=== PATIENT | female | born 1950 | race Caucasian/White ===

== ENCOUNTER → 2016-10-17 | Day surgery (SDC) | payer OTHER ==
[~2016-10-17] MED LIST: BUPIVACAINE/EPINEPHRINE 0.25% 50 ML VIAL ONE; ISOSULFAN BLUE 50 MG/5 ML VIAL SQ ONE; LACTATED RINGER'S 1000 ML INJ 1,000 ML ONE; MIDAZOLAM HCL 2 MG/2 ML VIAL ONE; ONDANSETRON HCL 4 MG/2 ML VIAL IV PUSH ONE; PROPOFOL 500 MG/50 ML BTL IV ONE; ceFAZolin 2 GM PREMIX 50 ML ONE
--- NOTE | 2016-10-17 14:13 | TN ---
cc: WILY SANDOVAL M.D. DATE OF SURGERY: 10/17/2016 PREOPERATIVE DIAGNOSIS 1. DCIS right breast. 2. History of left breast DCIS. POSTOPERATIVE DIAGNOSIS 1. DCIS right breast. 2. History of left breast DCIS. PROCEDURE PERFORMED Right needle-localized breast lumpectomy. SURGEON Wily Sandoval POLICY ADVISOR Juanita Monzon ANESTHESIA TIVA with local. COMPLICATIONS None. INDICATION FOR PROCEDURE Ms. Eubanks is a pleasant 66-year-old female who was noted to have some microcalcifications in her right breast. She underwent percutaneous biopsy and this was found to be DCIS. Her history is significant for having left breast DCIS for which she had a lumpectomy and postoperative radiation. The patient was sent for an MRI which showed fairly extensive enhancement in the upper central and outer quadrant of the right breast. She was advised that she could consider lumpectomy primarily, however, there was a good chance she was going to have positive margins. The patient wished to proceed with lumpectomy first with the understanding that she may require mastectomy. Risks and benefits of the procedure was discussed with her and she was agreeable. DETAILS OF PROCEDURE The patient was identified, brought to the operating room and placed supine on the operating table. After adequate IV sedation was achieved the right breast was prepped and draped in a standard surgical fashion. 0.25% Marcaine was injected in the skin and subcutaneous tissue in the upper central and outer right breast. A semilunar incision was made in the outer quadrant of the right breast. Subcutaneous skin flaps were then raised in all directions with generous margins away from the wire. The wire was then transected at the skin and brought into the operative site. Again using generous margins in all directions, the breast tissue was dissected with electrocautery Bovie down to the deep tissue just before the pectoral fascia. Specimen was then removed. A short stitch was placed superior and a long stitch placed lateral. By direct palpation the wire was well-centered with generous margins in all directions. The specimen was sent to radiology where Dr. Kaur called back stating that the mass and clip were within the specimen. Next, I elected to go ahead and take additional margins due to the fact the patient was found to have fairly extensive disease on the MRI just in case there were any close margins. A superior medial margin was taken first using electrocautery Bovie. An inferior medial margin was then taken second. After we did this I could also palpate some firm tissue in the lower central portion of the incision just in the infra-areolar position. This was excised and labeled palpable right breast tissue. After we did this the remainder of the breast was unremarkable. By direct palpation there were no other palpable abnormalities. This was a generous lumpectomy of the upper and outer right breast. The wound was copiously irrigated with normal saline solution. The lumpectomy cavity was then filled with 20 cc of 0.25% Marcaine. The wound was then closed in two layers using 3-0 and 4-0 Vicryl. Sterile dressings were applied. The patient was awakened and brought to Recovery in stable condition. MD FABBY Wilder/BJ /1:52 PM /2:04 PM
== END | disposition home or self-care (01) ==
LOC: ESDC 09:46
PROVIDERS: ATTEND Surgery Trauma Surgery
DX: D05.11 Intraductal carcinoma in situ of right breast (principal); Z85.3 Personal history of malignant neoplasm of breast
CPT/HCPCS: 00400; 19125; 88307; 88341; 88342; J0690; J2250; J2405; J3010; J7120; Q9968

== ENCOUNTER 2017-05-03 09:31 | Inpatient (IN) | payer OTHER, MEDICARE ==
[~2017-05-03] VITALS: Ht 157.5 cm; Wt 77.9 kg
[2017-05-03] MEDS ORDERED: IOHEXOL 350 MG/ML 10 ML VIAL (for RAD DIAG) IVCONTRAST ONE (09:32)
[2017-05-03 09:37] VITALS: BP 110/65; PULSE 84; RESP 24; TEMP 98.1; O2SAT 92
[2017-05-03] MEDS ORDERED: RAMI2.5C PO (09:47)
[2017-05-03] MEDS ORDERED: CLOP75TA PO (09:47)
[2017-05-03] MEDS ORDERED: SIMV40TA PO (09:47)
[2017-05-03] MEDS ORDERED: TAMO20TA6 PO (09:47)
[2017-05-03] MEDS ORDERED: DILT0.05 PO (09:47)
[2017-05-03] MEDS ORDERED: ALEN5TAB PO (09:47)
[2017-05-03] MEDS ORDERED: ASPI325T PO (09:47)
[2017-05-03] MEDS ORDERED: KETOROLAC TROMETHAMINE 60 MG/2 ML (IM) VIAL IM ONE (10:00)
[2017-05-03] MEDS ORDERED: HYDROmorphone HCL PF 1 MG/ML VIAL IV PUSH ONE (10:00)
[2017-05-03 10:05] VITALS: BP_SYST 102; BP_SYST 97; BP_DIAS 53; BP_DIAS 70; PULSE 88
--- NOTE | 2017-05-03 10:07 | RADRPT ---
EXAM DATE/TIME: 05/03/2017 09:54 [facility] COMPARISON: No previous studies available for comparison. INDICATIONS : left flank pain. MEDICAL HISTORY : Myocardial infarction. SURGICAL HISTORY : heart catherization ENCOUNTER: Initial ACUITY: 1 day PAIN SCORE: 6/10 LOCATION: Bilateral chest FINDINGS: PA and lateral views of the chest demonstrate bibasilar linear atelectasis/scarring, left worse than right. Blunting of the left costophrenic angle may represent some additional pleural-parenchymal scar ring although an associated small effusion cannot be excluded. Heart size is normal. Degenerative spu rring of the dorsal spine. Surgical clips in the right upper abdominal quadrant are characteristic of prior cholecystectomy CONCLUSION: 1. Bibasilar linear atelectasis/scarring, left worse in right. 2. Small effusion versus lateral pleural-parenchymal scarring in the left base.. Osbaldo Bell MD on May 03, 2017 at 10:02 Board Certified Radiologist. This report was verified electronically.
[2017-05-03 10:22] LABS: AUTOMATED NEUTROPHIL # 14.4 TH/MM3 (1.8-7.7); BASOPHIL # 0.1 TH/MM3 (0-0.2); BASOPHIL % 0.3 % (0.0-2.0); EOSINOPHIL % 0.1 % (0.0-4.0); HEMATOCRIT 38.5 % (35.0-46.0); HEMO FLAGS DIFF FINAL; LYMPH % 3.5 % (9.0-44.0); LYMPHOCYTE # 0.6 TH/MM3 (1.0-4.8); MEAN CORPUSCULAR HEMOGLOBIN 28.1 PG (27.0-34.0); MEAN CORPUSCULAR HGB CONC 33.4 % (32.0-36.0); MONO % 10.3 % (0.0-8.0); NEUT % 85.8 % (16.0-70.0); PLATELET COUNT 287 TH/MM3 (150-450); RED BLOOD COUNT 4.58 MIL/MM3 (4.00-5.30); WHITE BLOOD COUNT 16.7 TH/MM3 (4.0-11.0)
--- NOTE | 2017-05-03 10:25 | PD ---
HPI Chief Complaint: Respiratory Symptoms Time Seen by Provider: 09:36 Travel History International Travel<30 days: No Contact w/Intl Traveler<30days: No Traveled to known affect area: No History of Present Illness HPI This is a 58-year-old female with a history of breast cancer, tobaccoism, presents today with complaints of pleuritic left sided chest pain. Patient states it started last night. She reports it as severe and sharp. She reports that as an 8 out of 10 on the pain scale. There is radiation to her left upper shoulder. She also reports cough with no productive phlegm. She states the cough makes the pain worse. The patient does give history that she's recently returned from a long trip where she had multiple long car rides. She states that she had swelling in her right lower extremity earlier. She reports no sloughing today. There is no reported fevers, chills. PFSH Past Medical History Arthritis: Yes (osteoporosis) Anxiety: Yes Cancer: Yes (breast cancer) High Cholesterol: Yes COPD: Yes Gout: Yes Hypertension: Yes Pancreatitis: Yes Influenza Vaccination: Yes Past Surgical History Cholecystectomy: Yes Other Surgery: Yes (lumpectomy) Social History Alcohol Use: No Tobacco Use: Yes Substance Use: No Allergies-Medications (Allergen,Severity, Reaction): Coded Allergies: No Known Allergies (Unverified , 05/03/17) Reported Meds & Prescriptions Reported Meds & Active Scripts Active Reported Tamoxifen (Tamoxifen Citrate) 20 Mg Tab 20 Mg PO DAILY Aspirin 325 Mg Tab 325 Mg PO HS Alendronate (Alendronate Sodium) 5 Mg Tab 5 Mg PO DAILY Simvastatin 40 Mg Tab 40 Mg PO DAILY Ramipril 2.5 Mg Cap 2.5 Mg PO DAILY Clopidogrel (Clopidogrel Bisulfate) 75 Mg Tab 75 Mg PO DAILY Diltiazem ER 24 HR 180 Mg Livia 180 Mg PO DAILY Review of Systems Except as stated in HPI: all other systems reviewed are Neg General / Constitutional: No: Fever, Chills HENT: No: Headaches, Neck Pain Cardiovascular: Positive: Chest Pain or Discomfort, No: Palpitations, Irregular Rhythm Respiratory: Positive: Cough, Shortness of Breath, Orthopnea, Pleuritic Pain, No: Hemoptysis (left sided) Gastrointestinal: No: Nausea, Vomiting, Abdominal Pain Genitourinary: No: Frequency, Dysuria, Flank Pain (pain is in her left upper lateral chest) Musculoskeletal: Positive: Pain (left sided pleuritic chest pain with radiation to her left shoulder.), No: Weakness Neurologic: No: Weakness, Dizziness, Headache Physical Exam Narrative GENERAL: Well-developed, well-nourished female in no acute distress. SKIN: Focused skin assessment warm/dry. HEAD: Atraumatic. Normocephalic. EYES: No scleral icterus. No injection or drainage. ENT: No nasal bleeding or discharge. Mucous membranes pink and moist. NECK: Trachea midline. No JVD. Supple. CARDIOVASCULAR: Regular rate and rhythm. No murmur appreciated. RESPIRATORY: No accessory muscle use. Questionable slight decreased breath sounds at the left base. No Rales or wheezing appreciated. GASTROINTESTINAL: Abdomen soft, non-tender, nondistended. Hepatic and splenic margins not palpable. MUSCULOSKELETAL: No obvious deformities. No clubbing. No cyanosis. No edema. No Homans sign. NEUROLOGICAL: Awake and alert. No obvious cranial nerve deficits. Motor grossly within normal limits. Normal speech. PSYCHIATRIC: Appropriate mood and affect; insight and judgment normal. Data Data Last Documented VS Vital Signs Date Time Temp Pulse Resp B/P (MAP) Pulse Ox O2 Delivery O2 Flow Rate FiO2 05/03/17 16:09 91 17 101/55 (70) 96 Nasal Cannula 3.00 05/03/17 09:37 98.1 Orders Orders Electrocardiogram (05/03/17 09:36) Basic Metabolic Panel (Bmp) (05/03/17 09:36) Ckmb (Isoenzyme) Profile (05/03/17 09:36) Complete Blood Count With Diff (05/03/17 09:36) D-Dimer (05/03/17 09:36) Magnesium (Mg) (05/03/17 09:36) Prothrombin Time / Inr (Pt) (05/03/17 09:36) Act Partial Throm Time (Ptt) (05/03/17 09:36) Troponin I (05/03/17 09:36) Ecg Monitoring (05/03/17 09:36) Bilateral Bp Monitoring (05/03/17 09:36) Iv Access Insert/Monitor (05/03/17 09:36) Oximetry (05/03/17 09:36) Oxygen Administration (05/03/17 09:36) Chest, Pa & Lat (05/03/17 09:36) Hydromorphone Pf Inj (Dilaudid Pf Inj) (05/03/17 10:00) Ketorolac Inj (Toradol Inj) (05/03/17 10:30) Ct Pulmonary Angiogram (05/03/17 13:21) Blood Culture (05/03/17 13:22) Ceftriaxone Inj (Rocephin Inj) (05/03/17 13:30) Azithromycin Inj (Zithromax Inj) (05/03/17 13:30) Iohexol 350 Inj (Omnipaque 350 Inj) (05/03/17 09:32) Heparin Infusion HUNTER.Q1H (05/03/17 15:45) Heparin Infusion HUNTER.Q1H (05/03/17 15:45) Heparin Inj (Heparin Inj) (05/03/17 15:45) Heparin-D5w 25,000 U/250 Ml (Heparin-D5w (05/03/17 15:45) Act Partial Throm Time (Ptt) (05/03/17 15:45) Prothrombin Time / Inr (Pt) (05/03/17 15:45) Cbc No Diff, Includes Plts (05/03/17 15:45) Cbc No Diff, Includes Plts (05/06/17 06:00) Act Partial Throm Time (Ptt) (05/03/17 22:45) Occult Blood (Hemoccult) Stool (05/03/17 15:45) Aspirin (Aspirin) (05/03/17 21:00) Clopidogrel (Plavix) (05/04/17 09:00) Diltiazem Cd (Cardizem Cd) (05/04/17 09:00) Ramipril (Altace) (05/04/17 09:00) Pravastatin (Pravachol) (05/04/17 09:00) Consult Hematology (05/03/17 ) Admit To Inpatient (05/03/17 ) Code Status (05/03/17 16:03) Vital Signs (Adult) Q4H (05/03/17 16:03) Activity Oob Ad Kait (05/03/17 16:03) Carpet Inspector Finished / Telemetry .CONTINUOUS (05/03/17 16:03) Intake + Output HUNTER.QSHIFT (05/03/17 16:03) Notify Dr: Other (05/03/17 16:03) Diet Heart Healthy (05/03/17 Dinner) Sodium Chlor 0.9% 1000 Ml Inj (Ns 1000 M (05/03/17 16:30) Sodium Chloride 0.9% Flush (Ns Flush) (05/03/17 16:15) Sodium Chloride 0.9% Flush (Ns Flush) (05/03/17 21:00) Acetaminophen (Tylenol) (05/03/17 16:15) Ondansetron Inj (Zofran Inj) (05/03/17 16:15) Comprehensive Metabolic Panel (05/04/17 06:00) Complete Blood Count With Diff (05/04/17 06:00) Creatine Kinase (Cpk) (05/03/17 16:03) Creatine Kinase (Cpk) (05/03/17 22:03) Troponin I (05/03/17 16:03) Troponin I (05/03/17 22:03) Case Management Consult (05/03/17 16:03) Naloxone Inj (Narcan Inj) (05/03/17 16:15) Docusate Sodium-Senna (Denia-Colace) (05/03/17 21:00) Magnesium Hydroxide Liq (Milk Of Magnesi (05/03/17 16:15) Sennosides (Senokot) (05/03/17 16:15) Bisacodyl Supp (Dulcolax Supp) (05/03/17 16:15) Lactulose Liq (Lactulose Liq) (05/03/17 16:15) Inpatient Certification (05/03/17 ) Albuterol-Ipratropium Neb (Duoneb Neb) (05/03/17 20:00) Guaifenesin Er (Mucinex Er) (05/03/17 21:00) Resp Incentive Spirometry (05/03/17 ) (Hub Use Only)Inp Phy Cons/Ref (05/03/17 ) Admit Order (Ed Use Only) (05/03/17 18:01) Labs Laboratory Tests Test 05/03/17 09:45 05/03/17 15:50 05/03/17 16:00 White Blood Count 16.7 TH/MM3 12.0 TH/MM3 Red Blood Count 4.58 MIL/MM3 4.02 MIL/MM3 Hemoglobin 12.9 GM/DL 11.0 GM/DL Hematocrit 38.5 % 34.2 % Mean Corpuscular Volume 84.0 FL 85.0 FL Mean Corpuscular Hemoglobin 28.1 PG 27.4 PG Mean Corpuscular Hemoglobin Concent 33.4 % 32.2 % Red Cell Distribution Width 17.0 % 16.6 % Platelet Count 287 TH/MM3 263 TH/MM3 Mean Platelet Volume 10.0 FL 9.4 FL Neutrophils (%) (Auto) 85.8 % Lymphocytes (%) (Auto) 3.5 % Monocytes (%) (Auto) 10.3 % Eosinophils (%) (Auto) 0.1 % Basophils (%) (Auto) 0.3 % Neutrophils # (Auto) 14.4 TH/MM3 Lymphocytes # (Auto) 0.6 TH/MM3 Monocytes # (Auto) 1.7 TH/MM3 Eosinophils # (Auto) 0.0 TH/MM3 Basophils # (Auto) 0.1 TH/MM3 CBC Comment DIFF FINAL Differential Comment Prothrombin Time 10.6 SEC 10.9 SEC Prothromb Time International Ratio 1.0 RATIO 1.0 RATIO Activated Partial Thromboplast Time 24.6 SEC 24.7 SEC D-Dimer Quantitative (PE/DVT) 0.70 MG/L FEU Blood Urea Nitrogen 14 MG/DL Creatinine 0.92 MG/DL Random Glucose 117 MG/DL Calcium Level 8.4 MG/DL Magnesium Level 2.1 MG/DL Sodium Level 134 MEQ/L Potassium Level 3.9 MEQ/L Chloride Level 100 MEQ/L Carbon Dioxide Level 27.2 MEQ/L Anion Gap 7 MEQ/L Estimat Glomerular Filtration Rate 61 ML/MIN Total Creatine Kinase 34 U/L 38 U/L Troponin I LESS THAN 0.02 NG/ML LESS THAN 0.02 NG/ML MDM Medical Decision Making Medical Screen Exam Complete: Yes Emergency Medical Condition: Yes Differential Diagnosis Pulmonary embolus versus pneumonia versus pleurisy versus bronchitis versus COPD Narrative Course 66-year-old female with a history of bilateral breast cancer, tobaccoism, recent long car rides,, presents here with pleuritic left sided chest pain. The patient has a history of chronic bronchitis. She denies any fevers, chills. She does state that she has a cough as well. The patient was seen her primary care doctor and sent here after given 2 aspirin to rule out cardiac disease. There was a high suspicion for pulmonary emboli as she had had a long car rides and had had swelling of her right lower extremity previously. CT scan shows bilateral pulmonary emboli. The patient currently takes Plavix. He is a call out to the [facility] for admission. Room air O2 sat was 92% on room air here in the department. Diagnosis Primary Impression: Bilateral pulmonary embolism Additional Impressions: Hypoxemia History of bilateral breast cancer History of tobacco use Admitting Information Admitting Physician Requests: Admit Jacobo Welch MD May 03, 2017 10:25
[2017-05-03] MEDS ORDERED: KETOROLAC TROMETHAMINE 30 MG/ML (IVP) VIAL IV PUSH ONE (10:30)
[2017-05-03 10:41] LABS: ANION GAP 7 MEQ/L (5-15); BICARBONATE 27.2 MEQ/L (21.0-32.0); BLOOD UREA NITROGEN 14 MG/DL (7-18); CHLORIDE 100 MEQ/L (98-107); GLOMERULAR FILTRATION RATE 61 ML/MIN (>89); MAGNESIUM 2.1 MG/DL (1.5-2.5); POTASSIUM 3.9 MEQ/L (3.5-5.1); SODIUM (NA) 134 MEQ/L (136-145)
[2017-05-03 10:46] LABS: CREATINE KINASE 34 U/L (26-192)
[2017-05-03 10:53] LABS: APTT (PATIENT) 24.6 SEC (24.3-30.1); PROTHROMBIN TIME - PATIENT 10.6 SEC (9.8-11.6)
[2017-05-03 12:22] VITALS: BP 93/64; PULSE 77; RESP 18; O2SAT 95
[2017-05-03] MEDS ORDERED: cefTRIAXone INJ 1,000 MG in SODIUM CHLORIDE 0.9% INJ 100 ML IV ONE (13:30)
[2017-05-03] MEDS ORDERED: AZITHROMYCIN INJ 500 MG in SODIUM CHLOR 0.9% 250 ML INJ 250 ML IV ONE (13:30)
--- NOTE | 2017-05-03 14:12 | EKG ---
Date Performed: 05/03/2017 Time Performed: 09:39:53 PTAGE: 66 years EKG: Sinus rhythm MODERATE T-WAVE ABNORMALITY, CONSIDER ANTERIOR ISCHEMIA ABNORMAL ECG NO PREVIOUS TRACING DOCTOR: Gabriel Tellez Interpretating Date/Time 05/03/2017 14:09:54
--- NOTE | 2017-05-03 14:18 | RADRPT ---
EXAM DATE/TIME: 05/03/2017 13:52 [facility] COMPARISON: No previous studies available for comparison. INDICATIONS : Chest pain and shortness of breath since this morning. IV CONTRAST: 71 cc Omnipaque 350 (iohexol) IV RADIATION DOSE: 10.68 CTDIvol (mGy) MEDICAL HISTORY : Cardiovascular disease. Hypertension. Carcinoma, breast.DVT, lupus. SURGICAL HISTORY : Tubal ligation. Hysterectomy. ENCOUNTER: Initial ACUITY: 1 day PAIN SCALE: 5/10 LOCATION: Bilateral chest TECHNIQUE: Volumetric scanning of the chest was performed using a pulmonary embolism protocol MIP images were re constructed. Using automated exposure control and adjustment of the mA and/or kV according to patien t size, radiation dose was kept as low as reasonably achievable to obtain optimal diagnostic quality images. DICOM format image data is available electronically for review and comparison. Follow-up recommendations for detected pulmonary nodules are based at a minimum on nodule size and pa tient risk factors according to Fleischner Society Guidelines. FINDINGS: PULMONARY ARTERIES: The study is positive for relatively low volume bilateral pulmonary embolism with small tubular filli ng defect present in right lower lobe segmental and subsegmental pulmonary branch vessels as well as left upper and lower lobe pulmonary branch vessels. No sizable central embolus is present. LUNGS: Consolidative changes in the lung bases bilaterally, mainly right middle lobe and posterior and later al left lung base PLEURAE: Small left effusion. MEDIASTINUM: There is good visualization of the great vessels of the middle mediastinum. No evidence of mediastin al or hilar adenopathy/mass. MUSCULOSKELETAL: Within normal limits for patient age. MISCELLANEOUS: The visualized upper abdominal organs demonstrate no acute abnormality. CONCLUSION: Bilateral pulmonary embolism. Jose Luis Dale MD on May 03, 2017 at 14:10 Board Certified Radiologist. This report was verified electronically.
[2017-05-03] MEDS ORDERED: HEPARIN SODIUM - IV 10,000 UNITS/10 ML VIAL IV PUSH ONE (15:45)
[2017-05-03] MEDS: HEPARIN-D5W 25,000 U/250 ML 250 ML IV PRN (16:02)
--- NOTE | 2017-05-03 16:02 | HHI.HP ---
[facility] Primary [facility] Physician Maximiliano Hall MD Admission Diagnosis Diagnoses: Chief Complaint: pleuritic left sided chest pain. Travel History International Travel<30 Days: No Contact w/Intl Traveler <30 Da: No Traveled to Known Affected Are: No History of Present Illness This is a pleasant 58 y/o Female with Breast Cancer, Tobacco dependence, who came with complaints of pleuritic left sided chest pain. Patient states it started last night. She reports it as severe and sharp. She reports that as an 8 out of 10 on the pain scale. There is radiation to her left upper shoulder. She also reports cough with no productive phlegm. She states the cough makes the pain worse. The patient does give history that she's recently returned from a long trip where she had multiple long car rides. She states that she had swelling in her right lower extremity earlier. She reports no sloughing today. There is no reported fevers, chills. Seen in her bedroom no complaint at this moment, her arrives by her side a the end of my visit. Review of Systems Constitutional: DENIES: Fever, Chills, Change in appetite Endocrine: DENIES: Heat/cold intolerance Eyes: DENIES: Blurred vision, Eye pain Except as stated in HPI: all other systems reviewed are Neg Past Family Social History Past Medical History Osteoporosis Anxiety disorder Breast Cancer Hyperlipidemia COPD gout Hypertension pancreatitis Past Surgical History Cholecystectomy Lumpectomy Reported Medications Reported Meds & Active Scripts Active Reported Tamoxifen (Tamoxifen Citrate) 20 Mg Tab 20 Mg PO DAILY Aspirin 325 Mg Tab 325 Mg PO HS Alendronate (Alendronate Sodium) 5 Mg Tab 5 Mg PO DAILY Simvastatin 40 Mg Tab 40 Mg PO DAILY Ramipril 2.5 Mg Cap 2.5 Mg PO DAILY Clopidogrel (Clopidogrel Bisulfate) 75 Mg Tab 75 Mg PO DAILY Diltiazem ER 24 HR 180 Mg Livia 180 Mg PO DAILY Allergies: Coded Allergies: No Known Allergies (Unverified , 05/03/17) Active Ordered Medications Current Medications Medications (Trade) Dose Ordered Sig/Karine Route Start Time Stop Time Status Last Admin Heparin Sodium/ Dextrose 250 ml @ 14 mls/hr TITRATE PRN IV 05/03/17 15:45 05/03/17 16:02 (Aspirin) 325 mg HS PO 05/03/17 21:00 (Plavix) 75 mg DAILY PO 05/04/17 09:00 (Cardizem Cd) 180 mg DAILY PO 05/04/17 09:00 (Altace) 2.5 mg DAILY PO 05/04/17 09:00 (Pravachol) 80 mg DAILY PO 05/04/17 09:00 Sodium Chloride 1,000 ml @ 83 mls/hr Q12H3M IV 05/03/17 16:30 05/03/17 17:36 (NS Flush) 2 ml UNSCH PRN IV FLUSH 05/03/17 16:15 (NS Flush) 2 ml BID IV FLUSH 05/03/17 21:00 (Tylenol) 650 mg Q4H PRN PO 05/03/17 16:15 (Zofran Inj) 4 mg Q6H PRN IVP 05/03/17 16:15 (Narcan Inj) 0.4 mg UNSCH PRN IV PUSH 05/03/17 16:15 (Denia-Colace) 1 tab BID PO 05/03/17 21:00 (Milk Of Magnesia Liq) 30 ml Q12H PRN PO 05/03/17 16:15 (Senokot) 17.2 mg Q12H PRN PO 05/03/17 16:15 (Dulcolax Supp) 10 mg DAILY PRN RECTAL 05/03/17 16:15 (Lactulose Liq) 30 ml DAILY PRN PO 05/03/17 16:15 (Duoneb Neb) 1 ampule Q4HR NEB NEB 05/03/17 20:00 (Mucinex Er) 600 mg BID PO 05/03/17 21:00 Family History asked and denies. Social History tobacco dependence Physical Exam Vital Signs Vital Signs Date Time Temp Pulse Resp B/P (MAP) Pulse Ox O2 Delivery O2 Flow Rate FiO2 05/03/17 12:22 77 18 93/64 (74) 95 Nasal Cannula 3.00 05/03/17 11:16 20 05/03/17 11:16 20 05/03/17 10:05 88 102/70 (81) 97/53 (68) 05/03/17 09:37 98.1 84 24 110/65 (80 92 Physical Exam GENERAL: Well-developed, well-nourished female in no acute distress. SKIN: Focused skin assessment warm/dry. HEAD: Atraumatic. Normocephalic. EYES: No scleral icterus. No injection or drainage. ENT: No nasal bleeding or discharge. Mucous membranes pink and moist. NECK: Trachea midline. No JVD. Supple. CARDIOVASCULAR: Regular rate and rhythm. No murmur appreciated. RESPIRATORY: No accessory muscle use. Questionable slight decreased breath sounds at the left base. No Rales or wheezing appreciated. GASTROINTESTINAL: Abdomen soft, non-tender, nondistended. Hepatic and splenic margins not palpable. MUSCULOSKELETAL: No obvious deformities. No clubbing. No cyanosis. No edema. No Homans sign. NEUROLOGICAL: Awake and alert. No obvious cranial nerve deficits. Motor grossly within normal limits. Normal speech. PSYCHIATRIC: Appropriate mood and affect; insight and judgment normal. Laboratory Laboratory Tests Test 05/03/17 09:45 White Blood Count 16.7 Red Blood Count 4.58 Hemoglobin 12.9 Hematocrit 38.5 Mean Corpuscular Volume 84.0 Mean Corpuscular Hemoglobin 28.1 Mean Corpuscular Hemoglobin Concent 33.4 Red Cell Distribution Width 17.0 Platelet Count 287 Mean Platelet Volume 10.0 Neutrophils (%) (Auto) 85.8 Lymphocytes (%) (Auto) 3.5 Monocytes (%) (Auto) 10.3 Eosinophils (%) (Auto) 0.1 Basophils (%) (Auto) 0.3 Neutrophils # (Auto) 14.4 Lymphocytes # (Auto) 0.6 Monocytes # (Auto) 1.7 Eosinophils # (Auto) 0.0 Basophils # (Auto) 0.1 CBC Comment DIFF FINAL Differential Comment Prothrombin Time 10.6 Prothromb Time International Ratio 1.0 Activated Partial Thromboplast Time 24.6 D-Dimer Quantitative (PE/DVT) 0.70 Blood Urea Nitrogen 14 Creatinine 0.92 Random Glucose 117 Calcium Level 8.4 Magnesium Level 2.1 Sodium Level 134 Potassium Level 3.9 Chloride Level 100 Carbon Dioxide Level 27.2 Anion Gap 7 Estimat Glomerular Filtration Rate 61 Total Creatine Kinase 34 Troponin I LESS THAN 0.02 Date/Time Source Procedure Growth Status 05/03/17 09:45 Blood Peripheral Aerobic Blood Culture Pending Received 05/03/17 09:45 Blood Peripheral Anaerobic Blood Culture Pending Received Result Diagram: 05/03/1745 05/03/1745 Imaging Last Impressions Chest X-Ray 05/03/17935 Signed Impressions: Service Date/Time: Wednesday, May 03, 2017 09:54 - CONCLUSION: 1. Bibasilar linear atelectasis/scarring, left worse in right. 2. Small effusion versus lateral pleural-parenchymal scarring in the left base.. MD Latosha Dougherty VTE Risk Assessment Caprini VTE Risk Assessment: Mod/High Risk (score >= 2) Caprini Risk Assessment Model Point Value = 1 Point Value = 2 Point Value = 3 Point Value = 5 Age 41-60 Minor surgery BMI > 25 kg/m2 Swollen legs Varicose veins or History of unexplained or recurrent spontaneous Oral contraceptives or hormone replacement Sepsis (< 1 month) Serious lung disease, including pneumonia (< 1 month) Abnormal pulmonary function Acute myocardial infarction Congestive heart failure (< 1 month) History of inflammatory bowel disease Medical patient at bed rest Age 61-74 Arthroscopic surgery Major open surgery (> 45 min) Laparoscopic surgery (> 45 min) Malignancy Confined to bed (> 72 hours) Immobilizing plaster cast Central venous access Age >= 75 History of VTE Family history of VTE Factor V Leiden Prothrombin [id number] Lupus anticoagulant Anticardiolipin antibodies Elevated serum homocysteine Heparin-induced thrombocytopenia Other congenital or acquired thrombophilia Stroke (< 1 month) Elective arthroplasty Hip, pelvis, or leg fracture Acute spinal cord injury (< 1 month) Prophylaxis Regimen Total Risk Factor Score Risk Level Prophylaxis Regimen 0-1 Low Early ambulation 2 Moderate Order ONE of the following: *Sequential Compression Device (SCD) *Heparin 5000 units SQ BID 3-4 Higher Order ONE of the following medications: *Heparin 5000 units SQ TID *Enoxaparin/Lovenox 40 mg SQ daily (WT < 150 kg, CrCl > 30 mL/min) *Enoxaparin/Lovenox 30 mg SQ daily (WT < 150 kg, CrCl > 10-29 mL/min) *Enoxaparin/Lovenox 30 mg SQ BID (WT < 150 kg, CrCl > 30 mL/min) AND/OR *Sequential Compression Device (SCD) 5 or more Highest Order ONE of the following medications: *Heparin 5000 units SQ TID (Preferred with Epidurals) *Enoxaparin/Lovenox 40 mg SQ daily (WT < 150 kg, CrCl > 30 mL/min) *Enoxaparin/Lovenox 30 mg SQ daily (WT < 150 kg, CrCl > 10-29 mL/min) *Enoxaparin/Lovenox 30 mg SQ BID (WT < 150 kg, CrCl > 30 mL/min) AND *Sequential Compression Device (SCD) Assessment and Plan Assessment and Plan 1. Bilateral Pulmonary Emboli, in a patient who has Breast cancer on active management followed by denial resolution specialist she was seen by her PCP and sent her to ER for evaluation after giving her ASA, thinking initially on ACS. CTA scan shows bilateral pulmonary emboli. The patient currently takes Plavix. asked for [place]angel[place] management specialist consult bilateral Leg US and Echocardiogram. 2. Hypoxemia continue oxygen as needed to keep oxygen over 90%, Bronchodilator, Mucolytic and incentive spirometry 3. History of Bilateral Breast Cancer status post Lumpectomy, Radiation therapy and Hormonal therapy 4. Tobacco dependence strongly recommended to stop smoking 5. Osteoporosis by history 6. Anxiety disorder to continue home medicines 7. Hyperlipidemia continue Statins 8. COPD continue Bronchodilator, Mucolytic and incentive spirometry DVT prophylaxis with Heparin. Code Status Full code. Discussed Condition With Jacobo Welch MD Physician Certification 2 Midnight Certification Type: Admission for Inpatient Services Order for Inpatient Services The services are ordered in accordance with Medicare regulations or non- Medicare payer requirements, as applicable. In the case of services not specified as inpatient-only, they are appropriately provided as inpatient services in accordance with the 2-midnight benchmark. Estimated LOS (days): 3 days is the estimated time the patient will need to remain in the hospital, assuming treatment plan goals are met and no additional complications. Post-Hospital Plan: Not yet determined Karan Nobles MD May 03, 2017 16:02
[2017-05-03 16:09] VITALS: BP 101/55; PULSE 91; RESP 17; O2SAT 96
[2017-05-03 16:11] LABS: HEMATOCRIT 34.2 % (35.0-46.0); MEAN CORPUSCULAR HEMOGLOBIN 27.4 PG (27.0-34.0); MEAN CORPUSCULAR HGB CONC 32.2 % (32.0-36.0); PLATELET COUNT 263 TH/MM3 (150-450); RED BLOOD COUNT 4.02 MIL/MM3 (4.00-5.30); RED CELL DISTRIBUTION WIDTH 16.6 % (11.6-17.2); REVIEW FLAG FINAL
[2017-05-03] MEDS ORDERED: LACTULOSE SYRUP 20 GM/30 ML CUP PO PRN (16:15)
[2017-05-03] MEDS ORDERED: SODIUM CHLORIDE 0.9% FLUSH 10 ML FLUSH IV FLUSH PRN (16:15)
[2017-05-03] MEDS ORDERED: BISACODYL 10 MG SUPP RECTAL PRN (16:15)
[2017-05-03] MEDS ORDERED: MAGNESIUM HYDROXIDE SUSP 30 ML CUP PO PRN (16:15)
[2017-05-03] MEDS ORDERED: ONDANSETRON HCL 4 MG/2 ML VIAL IVP PRN (16:15)
[2017-05-03] MEDS ORDERED: ACETAMINOPHEN 325 MG TAB PO PRN (16:15)
[2017-05-03] MEDS ORDERED: SENNOSIDES 8.6 MG TAB PO PRN (16:15)
[2017-05-03] MEDS ORDERED: NALOXONE HCL 0.4 MG/ML AMP IV PUSH PRN (16:15)
[2017-05-03 16:23] LABS: APTT (PATIENT) 24.7 SEC (24.3-30.1); PROTHROMBIN TIME - PATIENT 10.9 SEC (9.8-11.6)
[2017-05-03 17:15] LABS: CREATINE KINASE 38 U/L (26-192)
[2017-05-03] MEDS: SODIUM CHLOR 0.9% 1000 ML INJ 1,000 ML IV SCH (17:36)
--- NOTE | 2017-05-03 19:10 | RADRPT ---
EXAM DATE/TIME: 05/03/2017 18:16 [place] COMPARISON: No previous studies available for comparison. INDICATIONS : Bilateral leg swelling. MEDICAL HISTORY : Hypercholesterolemia. Hypertension. Chronic obstructive pulmonary disease. Pancreatitis. Arthritis. G OUT. Anxiety. Breast cancer. SURGICAL HISTORY : Cholecystectomy. Lumpectomy. ENCOUNTER: Initial ACUITY: 1 day PAIN SCORE: 0/10 LOCATION: Bilateral legs. TECHNIQUE: Venous ultrasound of the left and right leg was performed from the inguinal ligament to the proximal calf. Real-time, color Doppler and spectral tracing, compression and augmentation techniques were us ed. FINDINGS: RIGHT LEG: There is normal compressibility of the deep venous system from the inguinal region to the proximal ca lf. No echogenic clot is seen in the lumen of the common femoral, femoral, popliteal, and posterior tibial veins. There is a normal response of the venous system to proximal and distal augmentation an d respiration. LEFT LEG: There is normal compressibility of the deep venous system from the inguinal region to the proximal ca lf. No echogenic clot is seen in the lumen of the common femoral, femoral, popliteal, and posterior tibial veins. There is a normal response of the venous system to proximal and distal augmentation an d respiration. CONCLUSION: No DVT. Jose Luis Uribe MD on May 03, 2017 at 19:08 Board Certified Radiologist. This report was verified electronically.
[2017-05-03] MEDS ORDERED: SERT-132 PO (19:38)
[2017-05-03] MEDS ORDERED: ARIC23TA PO (19:38)
[2017-05-03] MEDS ORDERED: PRED10 PO (19:38)
[2017-05-03] MEDS ORDERED: RALO1TAB PO (19:38)
[2017-05-03] MEDS ORDERED: TUMS500C CHEW (19:38)
[2017-05-03] MEDS ORDERED: VITA200013 (19:38)
[2017-05-03] MEDS ORDERED: VITA100021 SL (19:38)
[2017-05-03 20:00] VITALS: BP 111/58; PULSE 88; RESP 17; TEMP 97.2; O2SAT 95
[2017-05-03] MEDS: guaiFENesin E.R. 600 MG TAB PO SCH (20:50)
[2017-05-03] MEDS: ASPIRIN 325 MG TAB PO SCH (20:50)
[2017-05-03] MEDS: DOCUSATE SODIUM 50 MG/SENNA 8.6 MG TAB PO SCH (20:50)
[2017-05-03] MEDS: SODIUM CHLORIDE 0.9% FLUSH 10 ML FLUSH IV FLUSH SCH (20:51)
[2017-05-03] MEDS: RESP: ALBUTEROL 2.5 MG/IPRATROPIUM 0.5 MG NEB (SCH) NEB (20:55)
[2017-05-03 21:07] VITALS: PULSE 92
[2017-05-03 23:41] LABS: APTT (PATIENT) 52.5 SEC (24.3-30.1)
[2017-05-04] VITALS (11 sets, daily range): BP systolic 98–118; BP diastolic 49–59; PULSE 79–95; RESP 17–20; TEMP 97.7–99.8; O2SAT 92–98
[2017-05-04 00:12] LABS: CREATINE KINASE 42 U/L (26-192)
[2017-05-04] MEDS: RESP: ALBUTEROL 2.5 MG/IPRATROPIUM 0.5 MG NEB (SCH) NEB ×6 (00:34→20:00)
[2017-05-04] MEDS: SODIUM CHLOR 0.9% 1000 ML INJ 1,000 ML IV SCH ×2 (05:19→18:22)
[2017-05-04] MEDS: SODIUM CHLORIDE 0.9% FLUSH 10 ML FLUSH IV FLUSH SCH ×2 (09:00→21:00)
[2017-05-04] MEDS: PRAVASTATIN SOD 80 MG TAB PO SCH (09:36)
[2017-05-04] MEDS: CLOPIDOGREL 75 MG TAB PO SCH (09:36)
[2017-05-04] MEDS: RAMIPRIL 2.5 MG CAP PO SCH (09:36)
[2017-05-04] MEDS: DILTIAZEM-CD 180 MG CAP ER PO SCH (09:36)
[2017-05-04] MEDS: DOCUSATE SODIUM 50 MG/SENNA 8.6 MG TAB PO SCH ×2 (09:37→21:00)
[2017-05-04] MEDS: guaiFENesin E.R. 600 MG TAB PO SCH ×2 (09:37→21:14)
[2017-05-04] MEDS ORDERED: MORPHINE SULFATE 4 MG/ML INJ IV PUSH ONE (10:15)
[2017-05-04 11:16] LABS: AUTOMATED NEUTROPHIL # 10.8 TH/MM3 (1.8-7.7); BASOPHIL # 0.1 TH/MM3 (0-0.2); BASOPHIL % 0.5 % (0.0-2.0); EOSINOPHIL % 0.3 % (0.0-4.0); HEMATOCRIT 35.4 % (35.0-46.0); HEMO FLAGS DIFF FINAL; LYMPH % 4.7 % (9.0-44.0); LYMPHOCYTE # 0.6 TH/MM3 (1.0-4.8); MEAN CELL VOLUME 85.8 FL (80.0-100.0); MEAN CORPUSCULAR HEMOGLOBIN 27.8 PG (27.0-34.0); MEAN CORPUSCULAR HGB CONC 32.5 % (32.0-36.0); MONO % 8.3 % (0.0-8.0); NEUT % 86.2 % (16.0-70.0); PLATELET COUNT 216 TH/MM3 (150-450); RED BLOOD COUNT 4.12 MIL/MM3 (4.00-5.30); RED CELL DISTRIBUTION WIDTH 17.2 % (11.6-17.2); WHITE BLOOD COUNT 12.5 TH/MM3 (4.0-11.0)
[2017-05-04 11:29] LABS: ANION GAP 10 MEQ/L (5-15); AST (GOT) 27 U/L (15-37); BICARBONATE 22.6 MEQ/L (21.0-32.0); BLOOD UREA NITROGEN 9 MG/DL (7-18); CHLORIDE 105 MEQ/L (98-107); GLOMERULAR FILTRATION RATE 70 ML/MIN (>89); POTASSIUM 3.4 MEQ/L (3.5-5.1); SODIUM (NA) 138 MEQ/L (136-145)
[2017-05-04 11:31] LABS: ALT (GPT) 30 U/L (10-53); APTT (PATIENT) 36.4 SEC (24.3-30.1)
[2017-05-04 11:33] LABS: ALKALINE PHOSPHATASE 108 U/L (45-117); TOTAL BILIRUBIN ADULT 0.5 MG/DL (0.2-1.0)
[2017-05-04] MEDS: HEPARIN-D5W 25,000 U/250 ML 250 ML IV PRN (11:50)
--- NOTE | 2017-05-04 12:20 | ECHRPT ---
Indication: shortness of breath CONCLUSIONS The left ventricular systolic function is normal with an estimated ejection fraction in the range of 60-65%. Normal left ventricular size. Wall thickness is normal. No regional wall motion abnormalities are present. Pulmonary arterial systolic pressure could not be estimated due to an insufficient tricuspid valve regurgitation doppler jet for measurement. Normal left ventricular size. Wall thickness is normal. No regional wall motion abnormalities are present. Pulmonary arterial systolic pressure could not be estimated due to an insufficient tricuspid valve regurgitation doppler jet for measurement. The pulmonary valve is not well visualized. BP: 104 / 59 HR: 81 Rhythm: Sinus MEASUREMENTS (Male / Female) Normal Values Technical Quality:Good 2D ECHO LV Diastolic Diameter PLAX 4.2 cm 4.2 - 5.9 / 3.9 - 5.3 cm LV Systolic Diameter PLAX 2.7 cm IVS Diastolic Thickness 0.9 cm 0.6 - 1.0 / 0.6 - 0.9 cm LVPW Diastolic Thickness 0.9 cm 0.6 - 1.0 / 0.6 - 0.9 cm LV Relative Wall Thickness 0.4 RV Internal Dim ED PLAX 2.8 cm LVOT Diameter 2.0 cm LA Systolic Diameter LX 3.8 cm 3.0 - 4.0 / 2.7 - 3.8 cm LV Ejection Fraction MOD 4C 67.9 % LV Cardiac Index MOD 4C 3202.6 cm/minm LV Ejection Fraction 4C AL 68.6 % LV Cardiac Index 4C AL 3333.2 cm/minm M-MODE Aortic Root Diameter MM 3.2 cm AV Cusp Separation MM 1.8 cm DOPPLER AV Peak Velocity 244.5 cm/s AV Peak Gradient 23.9 mmHg AV Mean Gradient 11.0 mmHg AV Velocity Time Integral 42.2 cm LVOT Peak Velocity 135.0 cm/s LVOT Peak Gradient 7.3 mmHg LVOT Velocity Time Integral 26.6 cm LVOT Cardiac Index 3616.6 cm/minm AV Area Cont Eq vti 2.0 cm AV Area Cont Eq pk 1.7 cm MV Peak Velocity 156.0 cm/s MV Peak Gradient 9.7 mmHg MV Mean Velocity 95.2 cm/s MV Mean Gradient 4.0 mmHg MV Area PHT 4.0 cm Mitral E Point Velocity 109.5 cm/s Mitral A Point Velocity 137.0 cm/s Mitral E to A Ratio 0.8 LV E' Lateral Velocity 7.0 cm/s Mitral E to LV E' Lateral Ratio 15.6 LV E' Septal Velocity 6.8 cm/s Mitral E to LV E' Septal Ratio 16.1 PV Peak Velocity 136.5 cm/s PV Peak Gradient 7.5 mmHg FINDINGS LEFT VENTRICLE The left ventricular systolic function is normal with an estimated ejection fraction in the range of 60-65%. Normal left ventricular size. Wall thickness is normal. No regional wall motion abnormalities are present. RIGHT VENTRICLE Normal right ventricular size and systolic function. LEFT ATRIUM The left atrial size is normal. RIGHT ATRIUM The right atrial size is normal. ATRIAL SEPTUM Normal atrial septal thickness without atrial level shunting by limited color doppler interrogation. AORTA The aortic root and proximal ascending aorta are normal in size on limited imaging. MITRAL VALVE Structurally normal mitral valve. No mitral valve stenosis or regurgitation. TRICUSPID VALVE Pulmonary arterial systolic pressure could not be estimated due to an insufficient tricuspid valve regurgitation doppler jet for measurement. PULMONARY VALVE The pulmonary valve is not well visualized. VESSELS The inferior vena cava is normal in size. PERICARDIUM No pericardial effusion. Gabriel Tellez MD, FACC (Electronically Signed) Final Date:04 May 2017 12:19
--- NOTE | 2017-05-04 12:33 | HHI.PR ---
Subjective Remarks Breathing is better but pleuritic pain persisting. Morphine helps. Objective Vitals Vital Signs Date Time Temp Pulse Resp B/P (MAP) Pulse Ox O2 Delivery O2 Flow Rate FiO2 05/04/17 09:38 94 18 110/58 (75) 05/04/17 08:10 98.1 93 20 118/56 (76) 93 05/04/17 04:00 97.7 81 18 104/59 (74) 94 05/04/17 03:10 16 05/04/17 00:36 98 Nasal Cannula 3.00 05/04/17 00:32 79 05/04/17 00:00 98.4 82 17 105/57 (73) 94 05/03/17 21:07 92 05/03/17 20:58 Nasal Cannula 3.00 98 05/03/17 20:00 97.2 88 17 111/58 (75) 95 05/03/17 19:26 05/03/17 16:09 91 17 101/55 (70) 96 Nasal Cannula 3.00 I/O 05/03/17 05/03/17 05/03/17 05/04/17 05/04/17 05/04/17 07:00 15:00 23:00 07:00 15:00 23:00 Intake Total 100 ml 250 ml 240 ml Balance 100 ml 250 ml 240 ml Intake Oral 240 ml IV Total 100 ml 250 ml # Voids 2 Result Diagram: 05/04/17 0941 05/04/[address] Angiography 05/03/17 1321 Signed Impressions: Service Date/Time: Wednesday, May 03, 2017 13:52 - CONCLUSION: Bilateral pulmonary embolism. Jose Luis Dale MD Chest X-Ray 05/03/17 0936 Signed Impressions: Service Date/Time: Wednesday, May 03, 2017 09:54 - CONCLUSION: 1. Bibasilar linear atelectasis/scarring, left worse in right. 2. Small effusion versus lateral pleural-parenchymal scarring in the left base.. Osbaldo Bell MD Lower Extremity Ultrasound 05/03/17 0000 Signed Impressions: Service Date/Time: Wednesday, May 03, 2017 18:16 - CONCLUSION: No DVT. Jose Luis Uribe MD Objective Remarks GENERAL: In no acute distress. CARDIOVASCULAR: Regular rate and rhythm. RESPIRATORY: No accessory muscle use. Diminished breath sounds at the bases otherwise clear to auscultation. GASTROINTESTINAL: Abdomen soft, non-tender, nondistended. Hepatic and splenic margins not palpable. MUSCULOSKELETAL: Extremities without clubbing, cyanosis, or edema. No obvious deformities. NEUROLOGICAL: Awake and alert. No obvious cranial nerve deficits. Motor grossly within normal limits. Five out of 5 muscle strength in the arms and legs. Normal speech. PSYCHIATRIC: Appropriate mood and affect; insight and judgment normal. A/P Assessment and Plan 66 Y/O female with history of breast cancer admitted with bilateral pulmonary emboli after prolonged travel. Bilateral pulmonary emboli in a patient with history of bilateral breast cancer status post Lumpectomy, Radiation therapy and Hormonal therapy - Continue Heparin drip per protocol. Patient currently take Plavix - Hematology/Oncology consulted for input regarding anticoagulation - LE US unremarkable. 2D echo ordered Hypoxemia: Secondary to above. Improving - oxygen as needed to keep oxygen over 90%, Bronchodilator, and incentive spirometry History of Tobacco dependence -strongly recommended to stop smoking Anxiety disorder: continue home medications Hyperlipidemia continue Statins COPD continue Bronchodilator, Mucolytic and incentive spirometry DVT prophylaxis: On Heparin. Britt Henderson MD May 04, 2017 12:33
[2017-05-04] MEDS ORDERED: MORPHINE SULFATE 2 MG/ML INJ IV PUSH PRN (12:45)
[2017-05-04] MEDS: ACETAMINOPHEN/HYDROcodone 325 MG/5 MG TAB PO PRN (18:21)
[2017-05-04 18:57] LABS: APTT (PATIENT) 35.9 SEC (24.3-30.1)
[2017-05-04] MEDS: ASPIRIN 325 MG TAB PO SCH (21:14)
[2017-05-05] VITALS (9 sets, daily range): BP systolic 100–127; BP diastolic 52–63; PULSE 75–92; RESP 2–20; TEMP 97.4–99.2; O2SAT 92–98
[2017-05-05] MEDS: RESP: ALBUTEROL 2.5 MG/IPRATROPIUM 0.5 MG NEB (SCH) NEB ×3 (00:05→07:46)
[2017-05-05 02:01] LABS: HEMATOCRIT 30.7 % (35.0-46.0); MEAN CELL VOLUME 85.1 FL (80.0-100.0); MEAN CORPUSCULAR HEMOGLOBIN 28.1 PG (27.0-34.0); PLATELET COUNT 225 TH/MM3 (150-450); RED BLOOD COUNT 3.61 MIL/MM3 (4.00-5.30); RED CELL DISTRIBUTION WIDTH 16.7 % (11.6-17.2); REVIEW FLAG FINAL; WHITE BLOOD COUNT 9.7 TH/MM3 (4.0-11.0)
[2017-05-05 02:23] LABS: APTT (PATIENT) 53.4 SEC (24.3-30.1)
[2017-05-05 02:47] LABS: BICARBONATE 26.3 MEQ/L (21.0-32.0); POTASSIUM 3.3 MEQ/L (3.5-5.1)
[2017-05-05] MEDS: ACETAMINOPHEN/HYDROcodone 325 MG/5 MG TAB PO PRN ×2 (03:56→15:12)
--- NOTE | 2017-05-05 05:30 | MB ---
cc: CHELLY FLOOD DATE OF 1950 DATE OF CONSULTATION May 04, 2017 REASON FOR CONSULTATION The patient has a history of ductal carcinoma in situ of the breast who presents to the emergency department with dyspnea and was found to have pulmonary embolism. HISTORY OF PRESENT ILLNESS Ms. Eubanks is a 66-year-old female who has a diagnosis of DCIS of the right breast. She was found to have asymmetry within the right breast in the July of 2016. An ultrasound confirmed an ill-defined area of distortion at the 12 o'clock position. A diagnostic mammogram confirmed BI-RADS Category 4 suspicious abnormality. She underwent ultrasound-guided biopsy which confirmed ductal carcinoma in situ, nuclear grade intermediate with solid and cribriform patterns. This was ER positive 98%, ND positive 4%. She underwent lumpectomy/breast conservation surgery. The final biopsy confirmed a low-grade DCIS which was 30 mm. The margins were uninvolved. Pathological staging was pT1s pNx. She completed adjuvant radiation treatments. She is currently on hormone blockade therapy on tamoxifen. She has significant history of osteoporosis and currently is on an oral bisphosphonate. For this reason, even though she is postmenopausal she was not started on an aromatase inhibitor. She has history of left-sided DCIS which was treated 3 years ago at [facility] in [place]. She underwent lumpectomy at that time and also received radiation treatment. The patient now presents to the emergency department with acute onset dyspnea and pleuritic left-sided chest pain. In the emergency department she underwent a CT angiogram which revealed bilateral pulmonary embolism. There was a defect in the right lower segmental and subsegmental pulmonary branch vessels as well as left upper and lower lobe pulmonary branches. The patient also had lower extremity ultrasound which did not show any DVT. The patient was initiated on heparin GTT. She endorses pleuritic chest pain. Her dyspnea has improved. She denies any hemoptysis. REVIEW OF SYSTEMS A comprehensive 14-point review of systems was completed which is negative except as described in the HPI. PAST MEDICAL HISTORY 1. Bilateral breast DCIS. 2. Severe osteoporosis. 3. Anxiety disorder. 4. Hyperlipidemia. 5. COPD. 6. Gout. 7. Hypertension. 8. History of pancreatitis. PAST SURGICAL HISTORY 1. Cholecystectomy. 2. Lumpectomy. FAMILY HISTORY Reviewed and it is noncontributory to this admission. SOCIAL HISTORY She smokes a pack of cigarettes on a daily basis. Denies alcohol consumption. No illicit drug use. MEDICATIONS 1. Tamoxifen 20 mg p.o. daily. 2. Aspirin 325 mg p.o. q.h.s. 3. Alendronate 5 mg one tablet p.o. daily. 4. Simvastatin 40 mg p.o. daily. 5. Ramipril 2.5 mg p.o. daily. 6. Clopidogrel 75 mg p.o. daily. 7. Diltiazem 180 mg p.o. daily. ALLERGIES No known drug allergies. PHYSICAL EXAMINATION VITAL SIGNS: Blood pressure is 105/52, pulse is in the 90s, temperature is 99.8, O2 sats are 96% on room air. GENERAL: A well-developed, well-nourished obese female in no apparent distress. HEENT: Pupils are equal, round, reactive to light. EOMI. No oral thrush. No oral lesions. NECK: Supple. No JVD, no bruits. No lymphadenopathy. CHEST: Clear to auscultation bilaterally. CARDIAC: S1-S2 regular rate and rhythm. ABDOMEN: Soft, nontender, nondistended. Bowel sounds present. EXTREMITIES: Without any edema, erythema or cyanosis. SKIN: Without any petechiae, lesion or bruises. NEURO: No focal deficits. PSYCHIATRIC: Mood and affect is appropriate. LABORATORY DATA WBC 12.5, hemoglobin is 11.5, platelet count is 216. Serum chemistries show sodium of 138, potassium 3.4, CO2 22.6, BUN is 9, creatinine is 0.81, GFR is 70, magnesium is 2.1, total bilirubin 0.5, AST 27, ALT 30, alk phos is 108, albumin is 2.9. Coags - INR is 1. PT is 10.6 and PTT is 24.6. IMAGING STUDIES Reviewed in the EMR. ASSESSMENT AND PLAN This is a 66-year-old female who has a history of bilateral breast DCIS who is undergone bilateral lumpectomies with sentinel lymph node biopsies and these were DCIS. She has undergone bilateral radiation treatments to the breast. She is currently on hormonal blockade therapy on tamoxifen since she cannot be an aromatase inhibitor due to severe osteoporosis. She now presents with acute dyspnea and is found to have bilateral pulmonary embolism. 1. Acute bilateral pulmonary embolism. Her risk factors include history of tobacco abuse of more than 30 pack-years. Also she is currently on tamoxifen which has a risk of DVT, stroke and IL. I would recommend discontinuing tamoxifen. I advised the patient to stop taking this medicine. She started on heparin. This patient to be discharged home on Eliquis. The patient is on aspirin and Plavix. I will discontinue aspirin. She will follow up with me in the oncology clinic in two to three weeks post discharged. 2. Bilateral DCIS. Tamoxifen has been discontinued due to acute pulmonary embolism. Since an aromatase inhibitor is contraindicated in this patient, I would recommend observation with yearly mammograms and routine physical exams every 4-6 months. 3. Severe osteoporosis, currently on alendronate. Thank you for allowing me to participate in the care of this patient. I will continue to follow this patient along. MD KOURTNEY Pineda/FLYNN /12:11 AM /5:00 AM
[2017-05-05] MEDS: HEPARIN-D5W 25,000 U/250 ML 250 ML IV PRN (07:02)
[2017-05-05] MEDS: SODIUM CHLOR 0.9% 1000 ML INJ 1,000 ML IV SCH (07:03)
[2017-05-05] MEDS: DOCUSATE SODIUM 50 MG/SENNA 8.6 MG TAB PO SCH (08:39)
[2017-05-05] MEDS: CLOPIDOGREL 75 MG TAB PO SCH (08:39)
[2017-05-05] MEDS: PRAVASTATIN SOD 80 MG TAB PO SCH (08:39)
[2017-05-05] MEDS: RAMIPRIL 2.5 MG CAP PO SCH (08:39)
[2017-05-05] MEDS: guaiFENesin E.R. 600 MG TAB PO SCH (08:39)
[2017-05-05] MEDS: DILTIAZEM-CD 180 MG CAP ER PO SCH (08:39)
[2017-05-05] MEDS: SODIUM CHLORIDE 0.9% FLUSH 10 ML FLUSH IV FLUSH SCH (09:00)
[2017-05-05 09:32] LABS: APTT (PATIENT) 35.6 SEC (24.3-30.1)
[2017-05-05] MEDS ORDERED: HYDR-3516 PO (09:33)
[2017-05-05] MEDS ORDERED: APIX5TAB PO (09:33)
--- NOTE | 2017-05-05 09:33 | HHI.DCPOC ---
Discharge Care Plan Diagnosis: (1) Bilateral pulmonary embolism (2) History of bilateral breast cancer (3) Hypoxemia (4) History of tobacco use Goals to Promote Your Health * To prevent worsening of your condition and complications * To maintain your health at the optimal level Directions to Meet Your Goals Take your medications as prescribed Follow your dietary instruction Follow activity as directed Keep your appointments as scheduled Take your immunizations and boosters as scheduled If your symptoms worsen call your PCP, if no PCP go to Urgent Care Center or Emergency Room Smoking is Dangerous to Your Health. Avoid second hand smoke Call the 24-hour hour crisis hotline for domestic abuse at Britt Henderson MD May 05, 2017 09:33
--- NOTE | 2017-05-05 09:34 | HHI.DS ---
Discharge Summary Admission Date May 03, 2017 at 16:52 Discharge Date: May 05, 2017 Admitting Diagnosis (1) Bilateral pulmonary embolism ICD Code: I26.99 - Other pulmonary embolism without acute cor pulmonale Status: Acute (2) Hypoxemia ICD Code: R09.02 - Hypoxemia Status: Acute (3) History of bilateral breast cancer ICD Code: Z85.3 - Personal history of malignant neoplasm of breast Status: Acute (4) History of tobacco use ICD Code: Z87.891 - Personal history of nicotine dependence Status: Acute Procedures None Brief History - From Admission History of present illness from the admitting physician This is a pleasant 58 y/o Female with Breast Cancer, Tobacco dependence, who came with complaints of pleuritic left sided chest pain. Patient states it started last night. She reports it as severe and sharp. She reports that as an 8 out of 10 on the pain scale. There is radiation to her left upper shoulder. She also reports cough with no productive phlegm. She states the cough makes the pain worse. The patient does give history that she's recently returned from a long trip where she had multiple long car rides. She states that she had swelling in her right lower extremity earlier. She reports no sloughing today. There is no reported fevers, chills. Seen in her bedroom no complaint at this moment, her arrives by her side a the end of my visit. CBC/BMP: 05/05/17 0140 05/05/17 0140 Significant Findings Laboratory Tests Test 05/03/17 09:45 05/03/17 15:50 05/03/17 16:00 05/03/17 23:21 White Blood Count 16.7 TH/MM3 (4.0-11.0) 12.0 TH/MM3 (4.0-11.0) Neutrophils (%) (Auto) 85.8 % (16.0-70.0) Lymphocytes (%) (Auto) 3.5 % (9.0-44.0) Monocytes (%) (Auto) 10.3 % (0.0-8.0) Neutrophils # (Auto) 14.4 TH/MM3 (1.8-7.7) Lymphocytes # (Auto) 0.6 TH/MM3 (1.0-4.8) Monocytes # (Auto) 1.7 TH/MM3 (0-0.9) D-Dimer Quantitative (PE/DVT) 0.70 MG/L FEU (0.00-0.50) Random Glucose 117 MG/DL (74-106) Calcium Level 8.4 MG/DL (8.5-10.1) Sodium Level 134 MEQ/L (136-145) Estimat Glomerular Filtration Rate 61 ML/MIN (>89) Troponin I LESS THAN 0.02 NG/ML LESS THAN 0.02 NG/ML LESS THAN 0.02 NG/ML Hemoglobin 11.0 GM/DL (11.6-15.3) Hematocrit 34.2 % (35.0-46.0) Activated Partial Thromboplast Time 52.5 SEC (24.3-30.1) Test 05/04/17 09:41 05/04/17 17:57 05/05/17 01:40 05/05/17 09:05 White Blood Count 12.5 TH/MM3 (4.0-11.0) Hemoglobin 11.5 GM/DL (11.6-15.3) 10.1 GM/DL (11.6-15.3) Neutrophils (%) (Auto) 86.2 % (16.0-70.0) Lymphocytes (%) (Auto) 4.7 % (9.0-44.0) Monocytes (%) (Auto) 8.3 % (0.0-8.0) Neutrophils # (Auto) 10.8 TH/MM3 (1.8-7.7) Lymphocytes # (Auto) 0.6 TH/MM3 (1.0-4.8) Monocytes # (Auto) 1.0 TH/MM3 (0-0.9) Activated Partial Thromboplast Time 36.4 SEC (24.3-30.1) 35.9 SEC (24.3-30.1) 53.4 SEC (24.3-30.1) Random Glucose 145 MG/DL (74-106) 109 MG/DL (74-106) Albumin 2.9 GM/DL (3.4-5.0) Calcium Level 8.2 MG/DL (8.5-10.1) 7.4 MG/DL (8.5-10.1) Potassium Level 3.4 MEQ/L (3.5-5.1) 3.3 MEQ/L (3.5-5.1) Estimat Glomerular Filtration Rate 70 ML/MIN (>89) Red Blood Count 3.61 MIL/MM3 (4.00-5.30) Hematocrit 30.7 % (35.0-46.0) Total Protein 6.0 GM/DL (6.4-8.2) Chloride Level 109 MEQ/L (98-107) Protein Corrected Calcium 8.0 MG/DL (8.5-10.1) Imaging Last Impressions CT Angiography 05/03/17 1321 Signed Impressions: Service Date/Time: Wednesday, May 03, 2017 13:52 - CONCLUSION: Bilateral pulmonary embolism. Jose Luis Dale MD Chest X-Ray 05/03/17 0936 Signed Impressions: Service Date/Time: Wednesday, May 03, 2017 09:54 - CONCLUSION: 1. Bibasilar linear atelectasis/scarring, left worse in right. 2. Small effusion versus lateral pleural-parenchymal scarring in the left base.. Osbaldo Bell MD Lower Extremity Ultrasound 05/03/17 0000 Signed Impressions: Service Date/Time: Wednesday, May 03, 2017 18:16 - CONCLUSION: No DVT. Jose Luis Uribe MD PE at Discharge GENERAL: In no acute distress. CARDIOVASCULAR: Regular rate and rhythm. RESPIRATORY: No accessory muscle use. Diminished breath sounds at the bases otherwise clear to auscultation. GASTROINTESTINAL: Abdomen soft, non-tender, nondistended. Hepatic and splenic margins not palpable. MUSCULOSKELETAL: Extremities without clubbing, cyanosis, or edema. No obvious deformities. NEUROLOGICAL: Awake and alert. No obvious cranial nerve deficits. Motor grossly within normal limits. Five out of 5 muscle strength in the arms and legs. Normal speech. PSYCHIATRIC: Appropriate mood and affect; insight and judgment normal. Pt update on day of discharge Patient reports she is feeling better. Pleuritic pain is much better control. Still requiring oxygen. Eager to go home. Hospital Course 66 Y/O female with history of breast cancer admitted with bilateral pulmonary emboli after prolonged travel. Patient has been on tamoxifen which increased her risk for DVT and PE. Patient initially treated with IV heparin per protocol. She was followed by hematology/oncology would advise discontinuing tamoxifen and aspirin. The patient was transitioned to Eliquis per hematology recommendations. Although her respiratory status improved, she remained hypoxemic requiring oxygen. She is discharged home on oxygen. History of Tobacco dependence -strongly recommended to stop smoking Anxiety disorder: continue home medications Hyperlipidemia continue Statins COPD continue Bronchodilator, Mucolytic and incentive spirometry Patient to discontinue aspirin, continue Plavix Pt Condition on Discharge: Stable Discharge Disposition: Discharge Home Discharge Time: > 30 minutes Discharge Instructions DIET: Follow Instructions for: Heart Healthy Diet Activities you can perform: Regular-No Restrictions Follow up Referrals: Oncology/Hematology - 2 Weeks with Rich Gonzales MD New Medications: Oxygen (O2) (Oxygen (O2)) Device LITER ESTHELA.CANULA CONTINUOUS for Prevent Hypoxemia, #2 Oxygen Concentrator Portable Gaseous 2 L/min via Nasal Canula Continuous For 99 months Apixaban (Eliquis) 5 Mg Tab 5 MG PO BID, #60 TAB Hydrocodone-Acetaminophen (Hydrocodone-Acetaminophen) 5-325 mg Tab 1 TAB PO Q4H PRN for PAIN GREATER THAN 5, #20 TAB Continued Medications: Alendronate (Alendronate) 5 Mg Tab 5 MG PO DAILY for Osteoprosis Prophylaxis, #30 TAB 0 Refills Clopidogrel (Clopidogrel) 75 Mg Tab 75 MG PO DAILY for Blood Clot Prevention, #30 TAB 0 Refills Diltiazem ER 24 HR (Diltiazem ER 24 HR) 180 Mg Livia 180 MG PO DAILY, #30 TAB 0 Refills Ramipril (Ramipril) 2.5 Mg Cap 2.5 MG PO DAILY, #30 CAP 0 Refills Simvastatin (Simvastatin) 40 Mg Tab 40 MG PO DAILY for Cholesterol Management, #30 TAB 0 Refills Discontinued Medications: Aspirin (Aspirin) 325 Mg Tab 325 MG PO HS, #30 TAB 0 Refills Tamoxifen (Tamoxifen) 20 Mg Tab 20 MG PO DAILY for Chemotherapy Management, #60 TAB 0 Refills Britt Henderson MD May 05, 2017 09:34
[2017-05-05] MEDS ORDERED: APIXABAN 5 MG TABLET PO SCH (11:00)
[2017-05-05] MEDS ORDERED: OXYGENDME NAS.CANULA (11:59)
--- NOTE | 2017-05-05 19:40 | PD.ONC.PN ---
Objective Data Date Time Temp Pulse Resp B/P (MAP) Pulse Ox O2 Delivery O2 Flow Rate FiO2 05/05/17 15:10 92 16 127/62 (83) 05/05/17 12:05 99.2 86 20 104/52 (69) 94 05/05/17 12:02 89 05/05/17 10:55 3.00 05/05/17 08:22 75 05/05/17 08:05 98.9 83 2 113/55 (74) 94 05/05/17 07:49 98 Nasal Cannula 3.00 05/05/17 04:00 98.0 80 20 100/52 (68) 92 05/05/17 00:08 97 Nasal Cannula 3.00 05/05/17 00:00 97.4 79 20 104/63 (77) 95 05/04/17 20:00 98.5 86 18 98/49 (65) 97 05/05/17 05/05/17 05/05/17 07:00 15:00 23:00 Intake Total 240 ml 200 ml Balance 240 ml 200 ml Result Diagram: 05/05/17 0140 05/05/17 0140 Laboratory Results Laboratory Tests Test 05/05/17 01:40 05/05/17 09:05 White Blood Count 9.7 TH/MM3 Red Blood Count 3.61 MIL/MM3 Hemoglobin 10.1 GM/DL Hematocrit 30.7 % Mean Corpuscular Volume 85.1 FL Mean Corpuscular Hemoglobin 28.1 PG Mean Corpuscular Hemoglobin Concent 33.0 % Red Cell Distribution Width 16.7 % Platelet Count 225 TH/MM3 Mean Platelet Volume 9.7 FL Activated Partial Thromboplast Time 53.4 SEC 35.6 SEC Blood Urea Nitrogen 9 MG/DL Creatinine 0.55 MG/DL Random Glucose 109 MG/DL Total Protein 6.0 GM/DL Calcium Level 7.4 MG/DL Sodium Level 142 MEQ/L Potassium Level 3.3 MEQ/L Chloride Level 109 MEQ/L Carbon Dioxide Level 26.3 MEQ/L Anion Gap 7 MEQ/L Estimat Glomerular Filtration Rate 110 ML/MIN Protein Corrected Calcium 8.0 MG/DL Culture Results Microbiology Date/Time Source Procedure Growth Status 05/03/17 09:45 Blood Peripheral Aerobic Blood Culture - Preliminary NO GROWTH IN 2 DAYS Resulted 05/03/17 09:45 Blood Peripheral Anaerobic Blood Culture - Preliminary NO GROWTH IN 2 DAYS Resulted 05/03/17 09:45 Blood Peripheral Aerobic Blood Culture - Preliminary NO GROWTH IN 2 DAYS Resulted 05/03/17 09:45 Blood Peripheral Anaerobic Blood Culture - Preliminary NO GROWTH IN 2 DAYS Resulted Objective Remarks GENERAL: Well-nourished, well-developed patient. SKIN: Warm and dry. HEAD: Normocephalic. EYES: No scleral icterus. No injection or drainage. NECK: Supple, trachea midline. No JVD or lymphadenopathy. LYMPHATIC: No adenopathy. CARDIOVASCULAR: Regular rate and rhythm without murmurs. RESPIRATORY: Breath sounds equal bilaterally. No accessory muscle use. GASTROINTESTINAL: Abdomen soft, non-tender, nondistended. EXTREMITIES: No cyanosis, or edema. MUSCULOSKELETAL: Adequate muscle tone. NEUROLOGICAL: No obvious focal deficit. Awake, alert, and oriented x3. PSYCHIATRIC: Appropriate mood and affect; insight and judgment normal. Rich Gonzales MD May 05, 2017 19:40
== END 2017-05-05 16:33 | disposition home or self-care (01) | DRG 175 ==
LOC: NEPC 09:31 → NEDA 16:52 → HOCB 19:15
PROVIDERS: ADMIT Family Medicine; ATTEND Family Medicine
DX: I26.99 Other pulmonary embolism without acute cor pulmonale (principal); K85.90 Acute pancreatitis without necrosis or infection, unspecified; J44.9 Chronic obstructive pulmonary disease, unspecified; I10 Essential (primary) hypertension; R09.02 Hypoxemia; F17.200 Nicotine dependence, unspecified, uncomplicated; M81.0 Age-related osteoporosis without current pathological fracture; F41.9 Anxiety disorder, unspecified; E78.5 Hyperlipidemia, unspecified; M10.9 Gout, unspecified; Z85.3 Personal history of malignant neoplasm of breast
CPT/HCPCS: 71020; 71275; 80048; 80053; 82550; 83735; 84155; 84484; 85025; 85027; 85379; 85610; 85730; 87040; 93005; 93306; 93970; 94150; 94620; 94640; 94664; 96365; 96366; 96367; 96375; J0456; J0696; J1170; J1644; J1885; J2270; J7030; J7050; Q9967

== ENCOUNTER 2017-10-15 08:28 | Emergency (ER) | payer OTHER ==
[~2017-10-15] VITALS: Ht 157.5 cm; Wt 80.0 kg
[~2017-10-15 08:28] MED LIST changes: +ALEN5TAB PO; +APIX5TAB PO; -BUPIVACAINE/EPINEPHRINE 0.25% 50 ML VIAL ONE; +CLOP75TA PO; +DILT0.05 PO; +HYDR-3516 PO; -ISOSULFAN BLUE 50 MG/5 ML VIAL SQ ONE; -LACTATED RINGER'S 1000 ML INJ 1,000 ML ONE; -MIDAZOLAM HCL 2 MG/2 ML VIAL ONE; -ONDANSETRON HCL 4 MG/2 ML VIAL IV PUSH ONE; +OXYGENDME NAS.CANULA; -PROPOFOL 500 MG/50 ML BTL IV ONE; +RAMI2.5C PO; +SIMV40TA PO; -ceFAZolin 2 GM PREMIX 50 ML ONE
[2017-10-15 08:31] VITALS: BP 160/74; PULSE 93; RESP 22; TEMP 97.9; O2SAT 98
[2017-10-15] MEDS ORDERED: FLUO10TA PO (08:52)
[2017-10-15] MEDS ORDERED: ATOR20TA15 PO (08:52)
[2017-10-15] MEDS ORDERED: RESP: ALBUTEROL 2.5 MG/IPRATROPIUM 0.5 MG NEB (SCH) INH ONE (09:15)
[2017-10-15] MEDS ORDERED: SODIUM CHLORIDE 0.9% FLUSH 10 ML FLUSH IVF PRN (09:15)
--- NOTE | 2017-10-15 09:28 | PD ---
HPI Chief Complaint: Respiratory Symptoms Time Seen by Provider: 08:45 Travel History International Travel<30 days: No Contact w/Intl Traveler<30days: No Traveled to known affect area: No History of Present Illness HPI This is a 67-year-old female with a history of COPD, hypertension, coronary artery disease, breast cancer 2, who presents today with complaints of cough with phlegm in her throat. Patient states that she has had cough and congestion times several days. She reports that over the last couple days, she has had phlegm stuck in her throat. She denies any difficulty swallowing. She denies any difficulty breathing other than the phlegm that is collecting in her posterior pharynx. The patient does use tobacco products and states she smokes between a half a pack of 3 cores of pack of cigarettes a day. She reports smoking 56 years. Patient denies any fevers, chills. She denies any chest pain, chest pressure. There are no other complaints at time of examination. PFSH Past Medical History Hx Anticoagulant Therapy: Yes (ELIQUIS, PLAVIX) Arthritis: Yes (osteoporosis) Anxiety: Yes Cancer: Yes (breast cancer (DCIS)) Cardiovascular Problems: Yes (SD) High Cholesterol: Yes COPD: Yes Endocrine: No Gastrointestinal Disorders: Yes (Pancreatitis) Gout: Yes Genitourinary: No Hypertension: Yes Immune Disorder: No Musculoskeletal: Yes (Gout) Neurologic: No Reproductive: No Respiratory: Yes (COPD) Pancreatitis: Yes Radiation Therapy: Yes Tetanus Vaccination: Unknown Influenza Vaccination: Yes Past Surgical History Cholecystectomy: Yes Other Surgery: Yes (lumpectomy) Social History Alcohol Use: No Tobacco Use: Yes (10/01 ppd) Substance Use: No Allergies-Medications (Allergen,Severity, Reaction): Coded Allergies: No Known Allergies (Unverified Adverse Reaction, Unknown, 10/15/17) Reported Meds & Prescriptions Reported Meds & Active Scripts Active Tussin Dm Max Adult Liq (Dextromethorphan-Guaifenesin Liq) 10-200 Mg/5 Ml Liq 5 Ml PO Q4H PRN Zithromax Z-Robbie (Azithromycin) 250 Mg Dspk 250 Mg PO DIRECTED 500 MG (2 tabs) day 1, then 1 tab days 2-5. Oxygen (O2) Device Liter ESTHELA.CANULA CONTINUOUS Oxygen Concentrator Portable Gaseous 2 L/min via Nasal Canula Continuous For 99 months Eliquis (Apixaban) 5 Mg Tab 5 Mg PO BID Reported Fluoxetine (Fluoxetine HCl) 10 Mg Tab 10 Mg PO DAILY Atorvastatin (Atorvastatin Calcium) 20 Mg Tab 20 Mg PO HS Ramipril 2.5 Mg Cap 2.5 Mg PO DAILY Clopidogrel (Clopidogrel Bisulfate) 75 Mg Tab 75 Mg PO DAILY Diltiazem ER 24 HR 180 Mg Livia 180 Mg PO DAILY Review of Systems Except as stated in HPI: all other systems reviewed are Neg General / Constitutional: No: Fever, Chills HENT: No: Headaches, Lightheadedness Cardiovascular: No: Chest Pain or Discomfort, Palpitations Respiratory: Positive: Cough, Wheezing, Other (Phlegm in throat), No: Shortness of Breath Gastrointestinal: No: Nausea, Vomiting, Abdominal Pain Genitourinary: Positive: Urgency, No: Frequency, Dysuria Musculoskeletal: No: Weakness, Pain Neurologic: No: Dizziness, Headache Physical Exam Narrative GENERAL: Well-nourished, well-developed patient, in no acute respiratory distress. SKIN: Focused skin assessment warm/dry. ENT: Mucosa pink and moist. Posterior pharynx erythema with midline uvula. No exudate. There was evidence of postnasal drip noted. HEAD: Normocephalic/atraumatic. EYES: No scleral icterus. No injection or drainage. NECK: Supple, trachea midline. CARDIOVASCULAR: Rate in the 80s with no obvious murmurs. RESPIRATORY: Bilateral expiratory wheezes. No rales. GASTROINTESTINAL: Abdomen soft, non-tender, nondistended. MUSCULOSKELETAL: No cyanosis, or edema. NEUROLOGICAL: Awake and alert. Cranial nerves II through XII intact. Motor grossly within normal limits. Five out of 5 muscle strength in all muscle groups. Normal speech. Data Data Last Documented VS Vital Signs Date Time Temp Pulse Resp B/P (MAP) Pulse Ox O2 Delivery O2 Flow Rate FiO2 10/15/17 08:31 97.9 93 22 160/74 (102) 98 Orders Orders Iv Access Insert/Monitor (10/15/17 09:13) Ecg Monitoring (10/15/17 09:13) Oximetry (10/15/17 09:13) Oxygen Administration (10/15/17 09:13) Chest, Single Ap (10/15/17 09:13) Sodium Chloride 0.9% Flush (Ns Flush) (10/15/17 09:15) Albuterol-Ipratropium Neb (Duoneb Neb) (10/15/17 09:15) Albuterol Neb (Albuterol Neb) (10/15/17 09:15) [facility] Medical Decision Making Medical Screen Exam Complete: Yes Emergency Medical Condition: Yes Differential Diagnosis Bronchitis versus postnasal drip versus pneumonia versus COPD exacerbation Narrative Course 67-year-old female with history of COPD, coronary artery disease, breast cancer , hypertension, presents today with bites of cough and congestion. Patient also feels that she has got phlegm in her throat. Chest x-ray shows no evidence of acute infiltrate. The patient is afebrile. Given her COPD history , she will be treated with a Z-Robbie. She also be given a prescription for dextromethorphan with guaifenesin. She is instructed to purchase over-the- counter Claritin for the postnasal drip. Diagnosis Primary Impression: Bronchitis Additional Impression: Postnasal drip Additional Instructions: Claritin [id number] for postnasal drip. Follow-up with your primary care physician. Med/Other Pt SpecificInfo: Prescription(s) given Scripts Dextromethorphan-Guaifenesin Liq (Tussin Dm Max Adult Liq) 10-200 Mg/5 Ml Liq 5 ML PO Q4H Y for CHEST CONGESTION AND/OR COUGH, #120 ML 0 Refills Prov: Jacobo Welch MD 10/15/17 Azithromycin (Zithromax Z-Robbie) 250 Mg Dspk 250 MG PO DIRECTED for Infection, #1 DSPK 0 Refills 500 MG (2 tabs) day 1, then 1 tab days 2-5. Prov: Jacobo Welch MD 10/15/17 Disposition: 01 DISCHARGE HOME Condition: Stable Jacobo Welch MD Oct 15, 2017 09:28
[2017-10-15] MEDS: RESP: ALBUTEROL 2.5 MG/3 ML NEB (SCH) INH ×2 (09:42→09:43)
--- NOTE | 2017-10-15 09:46 | RADRPT ---
EXAM DATE/TIME: 10/15/2017 09:36 [facility] COMPARISON: No previous studies available for comparison. INDICATIONS : Shortness of breath for one day after cough for 3 days. MEDICAL HISTORY : Myocardial infarction. Hypercholesterolemia. Hypertension. Chronic obstructive pulmonary diseas e. Pancreatitis. Arthritis. GOUT. Anxiety. Breast cancer. SURGICAL HISTORY : Cholecystectomy. Lumpectomy. ENCOUNTER: Initial ACUITY: 3 days PAIN SCORE: 0/10 LOCATION: Bilateral chest FINDINGS: A single view of the chest demonstrates the lungs to be symmetrically aerated without evidence of mas s, infiltrate or effusion. The cardiomediastinal contours are unremarkable. Osseous structures are intact. CONCLUSION: No acute disease. Lacey Perez MD on October 15, 2017 at 9:43 Board Certified Radiologist. This report was verified electronically.
[2017-10-15] MEDS ORDERED: DEXT5LIQ12 PO (10:35)
[2017-10-15] MEDS ORDERED: ZITHTAB PO (10:35)
== END 2017-10-15 11:17 | disposition home or self-care (01) ==
LOC: NEPE 08:28
DX: J40 Bronchitis, not specified as acute or chronic (principal); R09.82 Postnasal drip; M81.0 Age-related osteoporosis without current pathological fracture; J44.9 Chronic obstructive pulmonary disease, unspecified; I10 Essential (primary) hypertension; I25.10 Atherosclerotic heart disease of native coronary artery without angina pectoris; F17.210 Nicotine dependence, cigarettes, uncomplicated; Z85.3 Personal history of malignant neoplasm of breast; Z79.01 Long term (current) use of anticoagulants
CPT/HCPCS: 71045; 94664; 99284; J7613

== ENCOUNTER → 2018-01-24 | Outpatient (CLI) | payer OTHER ==
[~2018-01-24] MED LIST changes: -ALEN5TAB PO; +ATOR20TA15 PO; +DEXT5LIQ12 PO; +FLUO10TA PO; -HYDR-3516 PO; -SIMV40TA PO; +ZITHTAB PO
--- NOTE | 2018-01-26 08:42 | RSPPFT ---
DATE OF PROCEDURE: 01/24/18 COMMENTS: VOLUMES DYNAMIC: FVC and FEV1 mildly reduced. STATIC: TLC, FRC and RV normal. FLOWS: FEV1% normal; FEF 25-75 moderately reduced. DIFFUSION: Mildly reduced. FLOW VOLUME LOOP: Pattern of variable intrathoracic airways obstruction. IMPRESSION: Mild obstructive ventilatory defect with a moderate reduction in diffusion but no significant hyperinflation. There is improvement post-bronchodilator.
== END ==
LOC: HRSP 08:54
PROVIDERS: ATTEND Internal Medicine
DX: J44.9 Chronic obstructive pulmonary disease, unspecified (principal)
CPT/HCPCS: 36600; 82805; 94060; 94618; 94726; 94729